=== PATIENT | female | born 1970 | race Caucasian/White ===

== ENCOUNTER 2017-06-27 10:41 | Emergency (ER) | payer SELFPAY ==
[~2017-06-27] VITALS: Ht 152.4 cm; Wt 65.0 kg
[~2017-06-27 10:41] MED LIST: CIPR500T2 PO; LORT5TAB PO; PHEN12.5 PO; PROM1SUP12 PR; PROM25SU8 PO; Z.0.NO CURRENT MEDS
[2017-06-27 10:43] VITALS: BP 220/100; PULSE 70; RESP 20; TEMP 98.2; O2SAT 98
[2017-06-27 11:07] VITALS: BP 204/91; PULSE 56
[2017-06-27] MEDS ORDERED: KETOROLAC TROMETHAMINE 60 MG/2 ML (IM) VIAL IM ONE (11:15)
--- NOTE | 2017-06-27 11:42 | RADRPT ---
EXAM DATE/TIME: 06/27/2017 11:27 [facility] COMPARISON: No previous studies available for comparison. INDICATIONS : Lower back pain,fell today MEDICAL HISTORY : None. SURGICAL HISTORY : None. ENCOUNTER: Initial ACUITY: 1 day PAIN SCORE: 10/10 LOCATION: Bilateral lumbar spine FINDINGS: There are five non-rib bearing vertebral bodies. The vertebral bodies are in normal alignment withou t evidence of subluxation or scoliosis. The disc spaces are maintained. The posterior elements are intact without evidence of spondylolysis. The pedicles are intact. Bony mineralization is normal. No fracture is identified. Degenerative changes are appreciated with anterior marginal spurring at th e levels L1-L5. There is narrowing of the L4-5 disc space consistent with degenerative disc disease a nd mild at L3-4. CONCLUSION: Degenerative changes as described. No acute bony injury. Mike Barber MD on June 27, 2017 at 11:38 Board Certified Radiologist. This report was verified electronically.
--- NOTE | 2017-06-27 11:51 | RADRPT ---
EXAM DATE/TIME: 06/27/2017 11:23 [facility] COMPARISON: No previous studies available for comparison. INDICATIONS : Middle back pain, fell today. MEDICAL HISTORY : None. SURGICAL HISTORY : None. ENCOUNTER: Initial ACUITY: 1 day PAIN SCORE: 9/10 LOCATION: Bilateral thoracic spine FINDINGS: There is normal alignment of the thoracic vertebral bodies. Vertebral body height is maintained. No evidence of fracture or subluxation. Pedicles are intact at all levels. The paravertebral reflecti ons are not thickened. Anterior marginal hypertrophic spurring is noted primarily mid and lower thora cic spine and predominantly on the right. CONCLUSION: Anterior marginal spurring. No acute bony injury. Mike Barber MD on June 27, 2017 at 11:47 Board Certified Radiologist. This report was verified electronically.
[2017-06-27] MEDS ORDERED: ROBA500T PO (12:03)
[2017-06-27] MEDS ORDERED: MELO15TA20 PO (12:03)
--- NOTE | 2017-06-27 12:04 | PD ---
HPI Chief Complaint: Back/ Neck Pain or Injury Time Seen by Provider: 10:57 Travel History International Travel<30 days: No Contact w/Intl Traveler<30days: No Traveled to known affect area: No History of Present Illness HPI This is a 47-year-old female here for evaluation of back pain after she had a mechanical slip and fall this morning. He denies head injury or loss of consciousness. She is not anticoagulated. She denies fever, chills, incontinence, saddle anesthesia, paresthesia or weakness of the extremity. Pain is worse with movement and relieved with rest. Of note patient was noted to the intensive in triage. She denies headache, dizziness, visual changes, chest pain, shortness of breath. She reports a history of hypertension but has not taken her medications. PFS Past Medical History Anemia: Yes Asthma: No Autoimmune Disease: No Blood Disorders: Yes (VAGINAL BLEEDING) Heart Rhythm Problems: No Cancer: No Cardiomyopathy: Yes Cardiovascular Problems: Yes High Cholesterol: No Chemotherapy: No Chest Pain: No Congestive Heart Failure: No COPD: No Cerebrovascular Accident: No Diminished Hearing: No Endocrine: No Glaucoma: No Genitourinary: No Headaches: Yes (RELATED TO LOW HGB) Hypertension: Yes Immune Disorder: No Kidney Stones: No Musculoskeletal: No Neurologic: No Psychiatric: No Reproductive: Yes (OVARIAN CYST ,VAGINAL BLEEDING LAST 3 MONTHS) Respiratory: No Migraines: No Myocardial Infarction: No Radiation Therapy: No Renal Failure: No Seizures: No Sickle Cell Disease: No Sleep Apnea: No Thyroid Disease: No ?: Not : 4 Para: 2 Miscarriage: 2 : 0 Ovarian Cysts: Yes Past Surgical History Abdominal Surgery: Yes (CHOLECYSTECTOMY) AICD: No Arteriovenous Shunt: No Cardiac Surgery: No Section: Yes Cholecystectomy: Yes Ear Surgery: No Endocrine Surgery: No Eye Surgery: No Genitourinary Surgery: No Hysterectomy: Yes Insulin Pump: No Joint Replacement: No Oral Surgery: No Pacemaker: No Thoracic Surgery: No Social History Alcohol Use: Yes Tobacco Use: Yes (1 CIG A DAY) Substance Use: No Allergies-Medications (Allergen,Severity, Reaction): Coded Allergies: No Known Allergies (Verified Adverse Reaction, Unknown, 06/27/17) Reported Meds & Prescriptions Reported Meds & Active Scripts Active Review of Systems Except as stated in HPI: all other systems reviewed are Neg General / Constitutional: No: Fever Eyes: No: Visual changes HENT: No: Headaches Cardiovascular: No: Chest Pain or Discomfort Respiratory: No: Shortness of Breath Gastrointestinal: No: Abdominal Pain Genitourinary: No: Dysuria Physical Exam Narrative GENERAL: Alert and well-appearing female. SKIN: Warm and dry. HEAD: Normocephalic. EYES: No scleral icterus. No injection or drainage. NECK: Supple, trachea midline. No cervical midline tenderness. CARDIOVASCULAR: Regular rate and rhythm RESPIRATORY: Breath sounds equal bilaterally. No accessory muscle use. GASTROINTESTINAL: Abdomen soft, non-tender, nondistended. MUSCULOSKELETAL: No cyanosis, or edema. 5 out of 5 strength in lower extremities. 2+ patellar and Achilles DTRs. Able to dorsiflex and plantar flex the great toe. BACK: Generalized tenderness of the thoracic and lumbar spine. Without obvious deformity. No CVA tenderness. Data Data Last Documented VS Vital Signs Date Time Temp Pulse Resp B/P (MAP) Pulse Ox O2 Delivery O2 Flow Rate FiO2 06/27/17 11:07 56 204/91 (128) 06/27/17 10:43 98.2 20 98 Orders Orders Spine, Lumbar Comp W/Obliq (06/27/17 ) Spine, Thoracic-Ap/Lat/Sw(3vw) (06/27/17 ) Ketorolac Inj (Toradol Inj) (06/27/17 11:15) MDM Medical Decision Making Medical Screen Exam Complete: Yes Emergency Medical Condition: Yes Differential Diagnosis Thoracic fracture, lumbar fracture, lumbar strain Narrative Course 47-year-old female here with low back pain after a mechanical slip and fall. She has a normal neurologic exam. X-ray's are negative for fracture. Her blood pressure was elevated on arrival. He denies any headache, visual changes , dizziness, chest pain, shortness of breath. She didn't take her blood pressure medication today. She was given a shot of Toradol and reports symptom improvement. Blood pressure recheck 184/90 Diagnosis Primary Impression: Lumbar strain Qualified Codes: S39.012A - Strain of muscle, fascia and tendon of lower back , initial encounter Referrals: [facility] Scripts Methocarbamol (Robaxin) 500 Mg Tab 500 MG PO TID for Muscle Spasm, #12 TAB 0 Refills Prov: Kera Benites 06/27/17 Meloxicam (Meloxicam) 15 Mg Tab 15 MG PO DAILY for Arthritis Pain, #30 TAB 0 Refills Prov: Kera Benites 06/27/17 Disposition: 01 DISCHARGE HOME Condition: Stable Kera Benites Jun 27, 2017 12:04
[2017-06-27 12:10] VITALS: BP 195/84
== END 2017-06-27 12:26 | disposition home or self-care (01) ==
LOC: NEPD 10:41
DX: S39.012A Strain of muscle, fascia and tendon of lower back, initial encounter (principal); F17.210 Nicotine dependence, cigarettes, uncomplicated; W01.0XXA Fall on same level from slipping, tripping and stumbling without subsequent striking against object, initial encounter
CPT/HCPCS: 72072; 72110; 96372; 99284; J1885